=== PATIENT | female | born 1945 | race Caucasian/White ===

== ENCOUNTER → 2016-09-17 | Outpatient (CLI) | payer MEDICARE ==
[~2016-09-17] MED LIST: CARDIZEM CD360 MG PO; CELEBREX 200MG200 MG PO; COUMADIN4 MG PO; DESYREL 50MG50 MG PO; FOLIC ACID 40400 MCG PO; IRON65 M1 PO; NORCO 325 MG-7.1 TAB PO; SAVELLA50 MG PO; ULTRAM 50MG TAB50 MG; URSO FORTE500 MG PO; VITAMIN C500 MG PO; VITAMIN D50000 I2 PO
== END ==
LOC: COL.VAS 11:37
DX: I27.2 Other secondary pulmonary hypertension (principal); I34.0 Nonrheumatic mitral (valve) insufficiency